=== PATIENT | male | born 1995 | race Caucasian/White ===

== ENCOUNTER 2018-03-28 18:09 | Emergency (ER) | payer OTHER ==
[~2018-03-28] VITALS: Ht 172.7 cm; Wt 79.1 kg
[2018-03-28 18:18] VITALS: TEMP 98.8
[2018-03-28] MEDS ORDERED: NORCO 325 MG-51 TAB PO (19:12)
[2018-03-28 19:26] VITALS: BP 137/54; PULSE 71
== END 2018-03-28 19:26 | disposition home or self-care (01) ==
LOC: COL.ER 18:09
DX: S42.251A Displaced fracture of greater tuberosity of right humerus, initial encounter for closed fracture (principal); W18.30XA Fall on same level, unspecified, initial encounter; Y99.0 Civilian activity done for income or pay

== ENCOUNTER → 2018-08-02 | Outpatient (CLI) | payer OTHER ==
[~2018-08-02] MED LIST: NORCO 325 MG-51 TAB PO
== END ==
LOC: ZCOL.LAB 17:52
DX: Z01.812 Encounter for preprocedural laboratory examination (principal); Z86.14 Personal history of Methicillin resistant Staphylococcus aureus infection